=== PATIENT | male | born 1970 | race Caucasian/White ===

== ENCOUNTER 2017-12-10 22:29 | Emergency (ER) | payer OTHER ==
[2017-12-10] MEDS ORDERED: NS 1,000 ML IV ONE (23:08)
[2017-12-10] MEDS ORDERED: ONDANSETRON 4 MG/2 ML VIAL IVP ONE (23:52)
--- NOTE | 2017-12-11 01:13 | EDPHY ---
H & P Stated Complaint: Too much marijuana Time Seen by Provider: 12/10/17 23:26 HPI/ROS: Chief complaint: Too much marijuana use History of present illness: This is a 47-year-old male who presents to the emergency department stating he feels like he has used too much marijuana. He was using a recreationally this evening. He took at doubles, he took a lot as he was not initially feeling any results from them. He is feeling dizzy and nauseous. He denies other drug use. He denies other associated signs or symptoms. Review of systems: A 10 point review of systems was obtained and other than described above was negative - Personal History Current Tetanus/Diphtheria Vaccine: Yes Current Tetanus Diphtheria and Acellular Pertussis (TDAP): Yes - Medical/Surgical History Hx Asthma: No Hx Chronic Respiratory Disease: No Hx Diabetes: No Hx Cardiac Disease: No Hx Renal Disease: No Hx Cirrhosis: No Hx Alcoholism: No Hx HIV/AIDS: No Hx Splenectomy or Spleen Trauma: No Other PMH: Hypercholesterolemia - Social History Smoking Status: Never smoked - Physical Exam Exam: General Appearance: Alert, nontoxic. Eyes: Pupils equal and round no pallor or injection. ENT, Mouth: Mucous membranes moist. Respiratory: There are no retractions, lungs are clear to auscultation. Cardiovascular: Regular rate and rhythm. Gastrointestinal: Abdomen is soft and non tender, no masses, bowel sounds normal. Neurological: Alert and oriented x4. Strength and sensation intact and symmetrical. Skin: Warm and dry, no rashes. Musculoskeletal: Neck is supple non tender. Extremities are symmetrical, full range of motion. Psychiatric: Patient is oriented X 3, there is no agitation. Constitutional: Initial Vital Signs Temperature (C) 36.8 C 12/10/17 22:35 Heart Rate 122 H 12/10/17 22:35 Respiratory Rate 16 12/10/17 22:35 Blood Pressure 133/67 H 12/10/17 22:35 O2 Sat (%) 94 12/10/17 22:35 O2 Delivery Mode Room Air Allergies/Adverse Reactions: Milk Containing Products [dairy] Allergy (Verified 12/10/17 22:39) Home Medications: Medication Instructions Recorded NK [No Known Home Meds] 12/10/17 Medical Decision Making ED Course/Re-evaluation: Patient is seen under the supervision of my secondary supervising physician Dr. Glenny Dougherty. Patient presents to the emergency department feeling he has taken too much edible marijuana. He is nontoxic. Vital signs are stable. Physical exam is unremarkable. He is IV hydrated and treated with Zofran. He is observed for while and reports resolution of symptoms. He would like to be discharged home. Home care is discussed. Return precautions are given. - Data Points Medications Given: Discontinued Medications Sodium Chloride (Ns) 1,000 mls @ 0 mls/hr IV ONCE ONE PRN Reason: Wide Open Stop: 12/10/17 23:09 Last Admin: 12/10/17 23:18 Dose: 1,000 mls Ondansetron HCl (Zofran) 4 mg IVP EDNOW ONE Stop: 12/10/17 23:53 Last Admin: 12/11/17 00:12 Dose: 4 mg Departure - Departure Disposition: Home, Routine, Self-Care Clinical Impression: Marijuana abuse Condition: Good Instructions: Polysubstance Abuse (ED) Additional Instructions: Follow-up with a primary care doctor for recheck If symptoms worsen or new symptoms develop return to the emergency room for recheck Referrals: NONE *PRIMARY CARE P,. [Primary Care Provider] - As per Instructions [facility],. [Clinic] - As per Instructions
[2017-12-11 01:19] VITALS: BP 117/88
== END 2017-12-11 01:18 | disposition home or self-care (01) ==
DX: F12.10 Cannabis abuse, uncomplicated (principal)
CPT/HCPCS: 96374; J2405